=== PATIENT | female | born 1955 | race Caucasian/White ===

== ENCOUNTER 2016-12-20 14:53 | Emergency (ER) | payer OTHER ==
[~2016-12-20 14:53] MED LIST: AMIODARONE HCL200 MG PO; ATENOLOL25 MG PO; CATAPRES0.1 MG PO; COLACE100 MG PO; COUMADIN3 MG PO; DIAZEPAM2 MG PO; HCTZ12.5 MG PO; KEPPRA250 MG PO; LOVENOX80 MG/0.8 SQ; REMERON30 MG PO; RISPERDAL 0.5M0.5 MG PO; SYNTHROID25 MCG PO; VITAMIN D2000 UNI1 PO; ZOCOR20 MG PO; ZOLOFT100 MG PO
[2016-12-20 15:48] LABS: BASOPHIL 0.1 % (0-2); EOSINOPHIL 0.6 % (0-5); HCT 31.4 % (37.0-47.0); HGB 9.8 g/dl (12.5-16.0); LYMPHOCYTE 13.2 % (15-48); MCH 29.4 pg (25.0-31.0); MCHC 31.2 g/dL (32.0-36.0); MCV 94.3 fL (78.0-100.0); MPV 10.1 fL (6.0-9.5); NEUTROPHIL 79.1 % (41-80); PLT 315 K/uL (150-400); RBC 3.33 M/uL (4.20-5.40); WBC 8.9 K/uL (4.0-10.5)
[2016-12-20 16:02] LABS: BILIRUBIN NEGATIVE (NEGATIVE); BLOOD TRACE-INTACT Ery/uL (NEGATIVE); CLARITY CLEAR (CLEAR); COLOR YELLOW (YELLOW); GLUCOSE (U) NORMAL (NORMAL); KETONE (U) NEGATIVE (NEGATIVE); LEUKOCYTES 1+ Leu/uL (NEGATIVE); NITRITE POSITIVE (NEGATIVE); PROTEIN NEGATIVE (NEGATIVE); UROBILINOGEN 0.2 mg/dL (0.2-1.0); pH 7.5 (5.0-9.0)
[2016-12-20 16:04] LABS: CREATININE 0.8 mg/dL (0.5-1.0); POTASSIUM 3.6 mmol/L (3.5-5.1)
[2016-12-20 16:11] LABS: YEAST PRESENT
[2016-12-20 16:12] LABS: BACTERIA 3+
[2016-12-20 16:28] LABS: INR 1.85 (0.9-1.2); PROTHROMBIN TIME 20.8 SECONDS (11.7-14.0); PTT 42.5 SECONDS (23.2-31.4)
== END 2016-12-20 19:42 | disposition home or self-care (01) ==
LOC: FER 14:53
PROVIDERS: Emergency Medicine
DX: R06.02 Shortness of breath (principal); N39.0 Urinary tract infection, site not specified; I10 Essential (primary) hypertension; F32.9 Major depressive disorder, single episode, unspecified; G40.909 Epilepsy, unspecified, not intractable, without status epilepticus; Z86.73 Personal history of transient ischemic attack (TIA), and cerebral infarction without residual deficits; Z87.891 Personal history of nicotine dependence; Z88.1 Allergy status to other antibiotic agents; Z79.01 Long term (current) use of anticoagulants; Z79.899 Other long term (current) drug therapy
CPT/HCPCS: 36415; 71020; 71275; 80048; 81001; 84484; 85025; 85610; 85730; 87040; 87076; 87088; 87186; 87804; 87899; 93005; J2405; Q9967

== ENCOUNTER 2021-03-29 13:24 | Inpatient (IN) | payer OTHER ==
[~2021-03-29] VITALS: Ht 157.5 cm; Wt 72.3 kg
[2021-03-29 14:05] LABS: BASOPHIL 0.2 % (0-2); EOSINOPHIL 0.1 % (0-7); HCT 38.8 % (37.0-47.0); HGB 12.9 g/dl (12.5-16.0); MCH 30.1 pg (25.0-31.0); MCHC 33.2 g/dL (32.0-36.0); MCV 90.7 fL (78.0-100.0); MONOCYTE 5.8 % (0-12); MPV 10.5 fL (6.0-9.5); NEUTROPHIL 70.6 % (41-80); NRBC 0; PLT 379 K/uL (150-400); RBC 4.28 M/uL (4.20-5.40); WBC 11.7 K/uL (4.0-10.5)
[2021-03-29 14:09] LABS: INR 3.4 (0.9-1.2); PROTHROMBIN TIME 32.8 SECONDS (11.4-13.6); PTT 42.2 SECONDS (22.2-34.7)
[2021-03-29 14:34] LABS: ALBUMIN 3.9 g/dL (3.4-5.0); ALKALINE PHOSHATASE 96 U/L (46-116); ALT 77 U/L (14-59); AST 61 U/L (15-37); BILIRUBIN - TOTAL 0.6 mg/dL (0.2-1.0); BUN 19 mg/dL (7-18); BUN/CREAT RATIO (CALC) 20.7 RATIO; CHLORIDE 106 mmol/L (98-107); CO2 (BICARBONATE) 22 mmol/L (21-32); CREATININE 0.92 mg/dL (0.51-0.95); GLOBULIN (CALCULATION) 3.6 g/dL; GLUCOSE 215 mg/dL (74-106); POTASSIUM 4.6 mmol/L (3.5-5.1); TOTAL PROTEIN 7.5 g/dL (6.4-8.2)
[2021-03-29 14:40] LABS: CKMB 4.7 ng/mL (0.0-3.6)
--- NOTE | 2021-03-29 16:59 | NUR ---
PER DR RENDON CHANGE CARDIZEM GTT TO 15ML/HR DUE TO PT HR UP TO 170'S
[2021-03-29 17:10] LABS: BILIRUBIN NEGATIVE (NEGATIVE); BLOOD NEGATIVE Ery/uL (NEGATIVE); CLARITY CLEAR (CLEAR); COLOR YELLOW (YELLOW); GLUCOSE (U) NORMAL (NORMAL); LEUKOCYTES NEGATIVE Leu/uL (NEGATIVE); NITRITE NEGATIVE (NEGATIVE); PROTEIN NEGATIVE (NEGATIVE); UROBILINOGEN 0.2 mg/dL (0.2-1.0); pH 5.5 (5.0-9.0)
--- NOTE | 2021-03-29 18:02 | NUR ---
PER DR RENDON: INCREASE CARDIZEM GTT TO 20ML/HR DUE TO PT AFIB BEING UNCONTROLLED.
--- NOTE | 2021-03-29 19:54 | NUR ---
SPOKE WITH CHRISTOS FOSTER ABOUT CARDIZEM DRIP AT 20MG/HR NEW ORDER TO CHANGE TO 15MG/HR.
[2021-03-30 06:02] LABS: BASOPHIL 0.1 % (0-2); EOSINOPHIL 0.2 % (0-7); HCT 35.3 % (37.0-47.0); HGB 11.4 g/dl (12.5-16.0); LYMPHOCYTE 20.3 % (15-48); MCH 29.5 pg (25.0-31.0); MCHC 32.3 g/dL (32.0-36.0); MCV 91.5 fL (78.0-100.0); MONOCYTE 7.7 % (0-12); MPV 10.2 fL (6.0-9.5); NEUTROPHIL 71.3 % (41-80); NRBC 0; PLT 219 K/uL (150-400); RBC 3.86 M/uL (4.20-5.40); RDW 13.8 % (11.5-14.0)
[2021-03-30 06:14] LABS: INR 3.75 (0.9-1.2); PROTHROMBIN TIME 35.4 SECONDS (11.4-13.6); PTT 50.9 SECONDS (22.2-34.7)
[2021-03-30 06:20] LABS: BUN/CREAT RATIO (CALC) 20.4 RATIO; CREATININE 0.98 mg/dL (0.51-0.95); POTASSIUM 3.9 mmol/L (3.5-5.1)
[2021-03-30 06:46] LABS: MAGNESIUM 2.3 mg/dL (1.8-2.4)
--- NOTE | 2021-03-30 15:49 | NUR ---
03/30/21 Ms. Brennan lives alone. She has a rw and s. chiar. She is able to drive to the grocery and manage her household. Her sister is a support system. -Pt is noted to be using 02 while hospitalized. Please inform if 02 is needed at home.
[2021-03-31 05:57] LABS: BASOPHIL 0.2 % (0-2); EOSINOPHIL 0.2 % (0-7); HCT 33.4 % (37.0-47.0); HGB 10.9 g/dl (12.5-16.0); MCH 30.2 pg (25.0-31.0); MCHC 32.6 g/dL (32.0-36.0); MCV 92.5 fL (78.0-100.0); MONOCYTE 7.1 % (0-12); MPV 10.4 fL (6.0-9.5); NEUTROPHIL 76.1 % (41-80); NRBC 0; PLT 204 K/uL (150-400); RBC 3.61 M/uL (4.20-5.40); RDW 13.5 % (11.5-14.0); WBC 9.5 K/uL (4.0-10.5)
[2021-03-31 06:09] LABS: INR 3.16 (0.9-1.2); PROTHROMBIN TIME 30.9 SECONDS (11.4-13.6)
[2021-03-31 06:33] LABS: BUN/CREAT RATIO (CALC) 21.6 RATIO; CREATININE 1.11 mg/dL (0.51-0.95); POTASSIUM 4.1 mmol/L (3.5-5.1)
[2021-03-31 06:41] LABS: MAGNESIUM 1.8 mg/dL (1.8-2.4)
[2021-03-31] MEDS ORDERED: ASPIRIN EC81 MG PO (09:29)
[2021-03-31] MEDS ORDERED: TAPAZOLE5 MG PO (09:29)
[2021-03-31] MEDS ORDERED: ATENOLOL25 MG PO (09:29)
== END 2021-03-31 11:10 | disposition other institution (70) | DRG 643 ==
LOC: FER 13:24 → FTCU 15:04
PROVIDERS: Emergency Medicine; Internal Medicine Cardiovascular Disease; Nurse Practitioner; ADMIT Internal Medicine
DX: E05.90 Thyrotoxicosis, unspecified without thyrotoxic crisis or storm (principal); I21.4 Non-ST elevation (NSTEMI) myocardial infarction; I42.9 Cardiomyopathy, unspecified; I48.0 Paroxysmal atrial fibrillation; E11.9 Type 2 diabetes mellitus without complications; Z20.822 Contact with and (suspected) exposure to COVID-19; D50.9 Iron deficiency anemia, unspecified; E78.00 Pure hypercholesterolemia, unspecified; E03.9 Hypothyroidism, unspecified; G40.909 Epilepsy, unspecified, not intractable, without status epilepticus; E55.9 Vitamin D deficiency, unspecified; I11.0 Hypertensive heart disease with heart failure; I50.9 Heart failure, unspecified; I44.7 Left bundle-branch block, unspecified; F41.1 Generalized anxiety disorder; F32.9 Major depressive disorder, single episode, unspecified; R63.4 Abnormal weight loss; Z79.01 Long term (current) use of anticoagulants; Z86.73 Personal history of transient ischemic attack (TIA), and cerebral infarction without residual deficits; Z85.3 Personal history of malignant neoplasm of breast; Z90.710 Acquired absence of both cervix and uterus; Z90.49 Acquired absence of other specified parts of digestive tract; Z90.11 Acquired absence of right breast and nipple; Z88.1 Allergy status to other antibiotic agents; Z88.8 Allergy status to other drugs, medicaments and biological substances; Z79.899 Other long term (current) drug therapy; Z87.891 Personal history of nicotine dependence
CPT/HCPCS: 36415; 71045; 80048; 80053; 81003; 82553; 82962; 83735; 83880; 84439; 84443; 84481; 84484; 85025; 85610; 85730; 93005; J1940; J2060; J3475; U0002

== ENCOUNTER 2021-11-13 00:42 | Emergency (ER) | payer OTHER, MEDICARE ==
[~2021-11-13 00:42] MED LIST changes: +ASPIRIN EC81 MG PO; +TAPAZOLE5 MG PO
[2021-11-13 02:02] LABS: BASOPHIL 0.2 % (0-2); EOSINOPHIL 0.1 % (0-7); HCT 40.6 % (37.0-47.0); HGB 13.9 g/dl (12.5-16.0); LYMPHOCYTE 16.3 % (15-48); MCH 30.6 pg (25.0-31.0); MCHC 34.2 g/dL (32.0-36.0); MCV 89.4 fL (78.0-100.0); MONOCYTE 6.9 % (0-12); MPV 10.5 fL (6.0-9.5); NRBC 0; PLT 213 K/uL (150-400); RBC 4.54 M/uL (4.20-5.40); RDW 15.7 % (11.5-14.0); WBC 13.5 K/uL (4.0-10.5)
[2021-11-13 02:07] LABS: INR 2.28 (0.9-1.2); PROTHROMBIN TIME 24.2 SECONDS (11.8-13.4)
[2021-11-13 02:08] LABS: PTT 56.2 SECONDS (24.4-34.7)
[2021-11-13 02:09] LABS: D-DIMER 0.31 ug/mLFEU (0.00-0.41)
[2021-11-13 02:29] LABS: CORONAVIRUS 2019 SARS-COV-2 NEGATIVE (NEGATIVE); INFLUENZA A NAA NEGATIVE (NEGATIVE)
[2021-11-13 02:33] LABS: ALBUMIN 3.7 g/dL (3.4-5.0); BILIRUBIN - TOTAL 1.1 mg/dL (0.2-1.0); BUN/CREAT RATIO (CALC) 19.4 RATIO; CREATININE 0.93 mg/dL (0.51-0.95); GLOBULIN (CALCULATION) 4.3 g/dL
== END 2021-11-13 05:43 | disposition home or self-care (01) ==
LOC: FER 00:42
PROVIDERS: Emergency Medicine Emergency Medical Services
DX: I10 Essential (primary) hypertension (principal); I48.91 Unspecified atrial fibrillation; S70.12XA Contusion of left thigh, initial encounter; E11.9 Type 2 diabetes mellitus without complications; Z20.822 Contact with and (suspected) exposure to COVID-19; Z88.1 Allergy status to other antibiotic agents; Z88.8 Allergy status to other drugs, medicaments and biological substances; X58.XXXA Exposure to other specified factors, initial encounter
CPT/HCPCS: 36415; 71045; 73700; 80053; 83880; 84145; 84484; 85025; 85379; 85610; 85730; 93005; J2405; U0002